=== PATIENT | female | born 1980 | race Two or more races ===

== ENCOUNTER 2017-03-01 07:11 | Emergency (ER) | payer SELFPAY ==
[2017-03-01] MEDS ORDERED: AMLODIPINE BESYLATE 2.5 MG TABLET PO ONE (10:07)
--- NOTE | 2017-03-01 10:07 | ER Document Report ---
ED General - General Chief Complaint: High Blood Pressure Stated Complaint: BLOOD PRESSURE PROBLEMS Time Seen by Provider: 03/01/17 08:13 Mode of Arrival: Ambulatory Information source: Patient Notes: 78-year-old female history of high blood pressure in the past 3 who was seen for a physical yesterday noted to have blood pressures 200s over 110 and was told to go to the emergency department presents today for her high blood pressure. Patient denies any symptoms at all denies any fevers or chills nausea vomiting or diarrhea TRAVEL OUTSIDE OF THE [place] IN LAST 30 DAYS: No - HPI Onset: Just prior to arrival Onset/Duration: Sudden Quality of pain: No pain Severity: Mild Pain Level: 1 Associated symptoms: None Exacerbated by: Denies Relieved by: Denies Similar symptoms previously: Yes Recently seen / treated by doctor: Yes - Related Data Allergies/Adverse Reactions: No Known Allergies Allergy (Verified 07/13/16 10:19) Past Medical History - Social History Smoking Status: Never Smoker Cigarette use (# per day): No Chew tobacco use (# tins/day): No Smoking Education Provided: No Frequency of alcohol use: None Drug Abuse: None Family History: Reviewed & Not Pertinent Patient has suicidal ideation: No Patient has homicidal ideation: No Renal/ Medical History: Denies: Hx Peritoneal Dialysis Review of Systems - Review of Systems Notes: PHYSICAL EXAMINATION: GENERAL: Well-appearing, well-nourished and in no acute distress. HEAD: Atraumatic, normocephalic. EYES: Pupils equal round and reactive to light, extraocular movements intact, conjunctiva are normal. ENT: Nares patent, oropharynx clear without exudates. Moist mucous membranes. NECK: Normal range of motion, supple without lymphadenopathy LUNGS: Breath sounds clear to auscultation bilaterally and equal. No wheezes rales or rhonchi. HEART: Regular rate and rhythm without murmurs ABDOMEN: Soft, nontender, nondistended abdomen. No guarding, no rebound. No masses appreciated. Female : deferred Musculoskeletal: Normal range of motion, no pitting or edema. No cyanosis. NEUROLOGICAL: Cranial nerves grossly intact. Normal speech, normal gait. Normal sensory, motor exams PSYCH: Normal mood, normal affect. SKIN: Warm, Dry, normal turgor, no rashes or lesions noted. Physical Exam - Vital signs Vitals: Temp Pulse Resp BP Pulse Ox 98.3 F 68 20 176/119 H 99 03/01/17 07:11 03/01/17 07:11 03/01/17 07:11 03/01/17 07:11 03/01/17 07:11 Course - Re-evaluation Re-evalutation: 03/01/17 10:29 Patient's blood pressure is noted to be elevated, she will be given Norvasc given that she has had 3 separate episodes of high blood pressure in the past. She has no complaints of her lab work and imaging is not appropriate at this time. She will be given family physician follow-up with. After performing a Medical Screening Examination, I estimate there is LOW risk for INTRACRANIAL HEMORRHAGE, ISCHEMIC CVA, MALIGNANT DYSRHYTHMIA, ACUTE CORONARY SYNDROME, MENINGITIS, PULMONARY EMBOLISM, or SEPSIS thus I consider the discharge disposition reasonable. I have reevaluated this patient multiple times and no significant life threatening changes are noted. The patient and I have discussed the diagnosis and risks, and we agree with discharging home with close follow-up with the understanding that symptoms and presentations can change. We also discussed returning to the Emergency Department immediately if new or worsening symptoms occur. We have discussed the symptoms which are most concerning (e.g., changing or worsening pain, weakness, vomiting, fever) that necessitate immediate return. 03/01/17 10:30 Patient wishes to be discharged home, states she has to be at work soon however her blood pressure is still elevated, she understands risks and benefits - Vital Signs Vital signs: Temp Pulse Resp BP Pulse Ox 98.3 F 68 16 176/119 H 99 03/01/17 07:11 03/01/17 07:11 03/01/17 08:30 03/01/17 07:11 03/01/17 07:11 Discharge - Discharge Clinical Impression: HTN (hypertension) Qualifiers: Hypertension type: essential hypertension Qualified Code(s): I10 - Essential ( primary) hypertension Condition: Stable Disposition: HOME, SELF-CARE Instructions: Calcium Channel Blockers ([facility]) Prescriptions: Amlodipine Besylate [Norvasc 2.5 mg Tablet] 2.5 mg PO DAILY #30 tablet Referrals: BRIAN CORONA MD [NO LOCAL MD] - Follow up tomorrow
[2017-03-01 10:45] VITALS: BP 189/121
== END 2017-03-01 10:48 | disposition home or self-care (01) ==
LOC: ER 07:11
DX: I10 Essential (primary) hypertension (principal)
CPT/HCPCS: 99283